=== PATIENT | female | born 1965 | race Caucasian/White ===

== ENCOUNTER → 2017-05-24 | Outpatient (CLI) | payer OTHER ==
--- NOTE | 2017-05-24 16:34 | MAM ---
EXAM DESCRIPTION: 3D Screening BILATERAL CLINICAL HISTORY: 51 yearsFemaleSCREENING. Aunt with breast cancer. Postmenopausal.. COMPARISON: Baseline study at this facility. No prior reports available. TECHNIQUE: Bilateral CC and MLO projection full-field images, 3-D tomosynthesis digital mammographic technique. Also bilateral synthesized CC/ MLO full-field images. CAD not utilized. FINDINGS: The breast parenchymal density pattern is: Heterogeneously dense breast tissue, which may obscure small masses. No skin thickening or nipple retraction No focal, stellate mass or density, focal asymmetry , and no suspicious microcalcifications bilaterally. IMPRESSION: Giovani BI-RADS 1 BI-RADS CATEGORY: 1 - NEGATIVE FOLLOW UP: Routine digital bilateral screening, one year interval from May 2017. Written communication explaining the findings and follow-up, will be mailed to the patient and referring health care provider. According to the [employer], yearly mammograms are recommended starting at age 40 and continuing as long as a woman is in good health. Any breast change noted on a breast self-exam should be reported promptly to the patient's healthcare provider. Breast MRI is recommended for women with an approximately 20-25% or greater lifetime risk of breast cancer, including women with a strong family history of breast or ovarian cancer and women who have been treated for Hodgkin's disease. A negative mammographic report should not delay tissue diagnosis in patients with significant clinical history or physical findings. Extremely dense breast tissue limits the sensitivity of digital mammography. Electronically signed by: Patricio Miles MD 05/24/2017 4:32 PM CDT Workstation: [id number]
== END ==
LOC: MAMMO 11:05
PROVIDERS: ATTEND Family Medicine
DX: Z12.31 Encounter for screening mammogram for malignant neoplasm of breast (principal)

== ENCOUNTER → 2017-07-14 | Outpatient (CLI) | payer OTHER | LOC: YCFC.O 17:41 | PROVIDERS: ATTEND Nurse Practitioner Family | DX: E06.3 Autoimmune thyroiditis (principal); E28.2 Polycystic ovarian syndrome; E66.3 Overweight; G43.909 Migraine, unspecified, not intractable, without status migrainosus ==

== ENCOUNTER → 2017-08-31 | Outpatient (CLI) | payer OTHER | END | disposition home or self-care (01) | LOC: YCFC.O 08:32 | PROVIDERS: ATTEND Nurse Practitioner Family | DX: R53.83 Other fatigue (principal) ==

== ENCOUNTER → 2017-10-18 | Outpatient (CLI) | payer OTHER | END | disposition home or self-care (01) | LOC: LAB.O 07:56 | PROVIDERS: ATTEND Internal Medicine | DX: E28.2 Polycystic ovarian syndrome (principal); R53.83 Other fatigue ==

== ENCOUNTER → 2017-10-24 | Outpatient (CLI) | payer OTHER ==
--- NOTE | 2017-10-25 10:42 | US ---
EXAM DESCRIPTION: Thyroid: Ultrasound. CLINICAL HISTORY: LEXI'S THYROIDITIS COMPARISON: Radionuclide thyroid scan I-123 uptake 01/02/2009. TECHNIQUE: Transcutaneous scannin-dimensional and Doppler modes. Largest nodule(s) bilaterally will have point score for TI-RADS. FINDINGS: Right lobe dimensions 4.9 x 2.5 x 2.1 cm. Heterogeneous echoes. No cystic, no solid, and no complex lesions. Decreased vascularity. No echogenic foci. Contour right lobe smooth. Juxta-thyroid masses/fluid: none. Left lobe dimensions 5.0 x 2.1 x 1.6 cm. Heterogeneous echoes. No cystic, no solid, and no complex lesions. Decreased vascularity. No echogenic foci. Contour left lobe smooth. Juxta-thyroid masses/fluid: none. Isthmus thickness 1.1 mm. Heterogeneous echoes. No cystic, no solid, and no complex lesions. Vascularity Contour smooth. IMPRESSION: 1. Thyroid gland is minimally enlarged with heterogeneous echoes in both lobes and the isthmus. Diminished vascularity. No nodules or cysts. This could represent Lexi's thyroiditis in remission. Since no nodules are present, decision for follow-up imaging should be based upon clinical findings. 2. No discrete solid masses, cystic masses, or edema in the surrounding soft tissues. Electronically signed by: Patricio Miles MD 10/25/2017 10:40 AM [employer] [employer]
== END | disposition home or self-care (01) ==
LOC: US 14:45
PROVIDERS: ATTEND Internal Medicine
DX: E04.1 Nontoxic single thyroid nodule (principal)

== ENCOUNTER → 2018-02-10 | Outpatient (CLI) | payer OTHER | END | disposition home or self-care (01) | LOC: GMAJ 15:11 | PROVIDERS: ATTEND Nurse Practitioner Family | DX: E06.3 Autoimmune thyroiditis (principal) ==

== ENCOUNTER → 2018-05-15 | Outpatient (CLI) | payer OTHER | LOC: LAB.O 07:55 | PROVIDERS: ATTEND Nurse Practitioner Family | DX: E06.3 Autoimmune thyroiditis (principal); Z13.6 Encounter for screening for cardiovascular disorders ==

== ENCOUNTER → 2020-07-17 | Outpatient (CLI) | payer SELFPAY | LOC: YCFC.O 08:00 | PROVIDERS: ATTEND Family Medicine | DX: R53.83 Other fatigue (principal); R63.5 Abnormal weight gain ==